=== PATIENT | female | born 1980 | race Caucasian/White ===

== ENCOUNTER → 2016-05-25 | Outpatient (CLI) | payer SELFPAY ==
[2016-05-25 14:26] LABS: BASOPHILS # (AUTO) 0.01 10*3/UL; BASOPHILS % (AUTO) 0.1 % (0-1); EOSINOPHILS % (AUTO) 0.6 % (0-8); HEMATOCRIT 39.7 % (37.0-47.0); HEMOGLOBIN 13.3 g/dL (12.0-16.0); IMM GRAN % (AUTO) 0.1 % (0-5); IMM GRAN# (AUTO) 0.01 10*3/UL; LYMPHOCYTES # (AUTO) 1.65 10*3/uL; LYMPHOCYTES % (AUTO) 18.6 % (10-50); MEAN CORPUSCULAR HEMOGLOBIN 31.4 PG (27-31); MEAN CORPUSCULAR HGB CONC 33.5 g/dL (33-37); MEAN PLATELET VOLUME 11.8 FL (7.4-12.2); MONOCYTES # (AUTO) 0.45 10*3/UL (0.3-0.8); MONOCYTES % (AUTO) 5.1 % (5-15); NEUTROPHILS # (AUTO) 6.71 10*3/UL; NEUTROPHILS % (AUTO) 75.5 % (50-80); RDW COEFFICIENT OF VARIATION 13.6 % (11.5-14.5); RED BLOOD COUNT 4.24 10^6/uL (4.20-5.40); WHITE BLOOD COUNT 8.88 10^3/uL (4.8-10.8)
[2016-05-25 15:01] LABS: PLATELET MORPHOLOGY COMMENT NORMAL MORPHOLOGY (NORM); PRENATAL QUESTION YES (Y)
[2016-05-25 16:26] LABS: HIV ANTIBODY NEGATIVE (N); HIV-1 P24 ANTIGEN NEGATIVE (N)
[2016-05-27 13:57] LABS: HEP B SURFACE AG Negative (Negative); RUBELLA IGG INDEX 0.5 (()); SYPHILIS IGG WITH REFLEX Negative (Negative)
== END ==
LOC: MOB LAB 13:25
PROVIDERS: ATTEND Obstetrics & Gynecology
DX: O26.891 Other specified pregnancy related conditions, first trimester (principal); N89.8 Other specified noninflammatory disorders of vagina; Z36 Encounter for antenatal screening of mother
CPT/HCPCS: 36415; 80081; 86900; 86901; 87088; 87210

== ENCOUNTER 2016-06-04 15:19 | Emergency (ER) | payer OTHER ==
[2016-06-04 15:51] LABS: BASOPHILS # (AUTO) 0.02 10*3/UL; BASOPHILS % (AUTO) 0.2 % (0-1); EOSINOPHILS % (AUTO) 0.5 % (0-8); HEMATOCRIT 39.7 % (37.0-47.0); HEMOGLOBIN 13.4 g/dL (12.0-16.0); IMM GRAN % (AUTO) 0.1 % (0-5); IMM GRAN# (AUTO) 0.01 10*3/UL; LYMPHOCYTES # (AUTO) 1.74 10*3/uL; LYMPHOCYTES % (AUTO) 20.3 % (10-50); MEAN CORPUSCULAR HEMOGLOBIN 31.2 PG (27-31); MEAN CORPUSCULAR HGB CONC 33.8 g/dL (33-37); MEAN PLATELET VOLUME 11.3 FL (7.4-12.2); MONOCYTES # (AUTO) 0.63 10*3/UL (0.3-0.8); MONOCYTES % (AUTO) 7.3 % (5-15); NEUTROPHILS # (AUTO) 6.14 10*3/UL; NEUTROPHILS % (AUTO) 71.6 % (50-80); RDW COEFFICIENT OF VARIATION 13.6 % (11.5-14.5); RED BLOOD COUNT 4.29 10^6/uL (4.20-5.40); WHITE BLOOD COUNT 8.58 10^3/uL (4.8-10.8)
--- NOTE | 2016-06-04 15:58 | PDOC ---
Female Problem HPI - General Chief Complaint: Vag Complaint/Bleed, <20WK IUP Stated Complaint: VAGINAL BLEEDING 9 week Date Seen by Provider: 06/04/16 Time Seen by Provider: 15:30 Source: POSITIVE: Patient Exam Limitations: POSITIVE: No limitations Nurse's Notes Reviewed & Considered: Yes - History of Present Illness Initial Comments: The patient is a 35-year-old female who is a at approximately 9-1/2 weeks gestational age who presents to the emergency room with vaginal bleeding. She states that during this she has had some intermittent spotting since the beginning. This morning she had a small gush of bright red blood. She does have some mild lower abdominal cramping she describes as similar to menstrual cramping. She has not had any fevers or chills, urinary symptoms or any other associated complaints. Her blood type is O+. - Patient Home Medications Home Medications: Home Medications Vit W-Ca,Fe,FA(<1 mg) [ Formula] 1 tab PO DAILY tab 08/06/14 - Patient Allergies Allergies/Adverse Reactions: Allergies Allergy/AdvReac Type Severity Reaction Status Date / Time No Known Drug Allergies Allergy NOT Verified 06/04/16 15:25 APPLICABLE Past Medical History - heen HEENT History: Denies History Cardiovascular History: Denies History Respiratory History: Denies History Gastrointestinal History: GERD Genitourinary History: Denies History Endocrine History: Denies History Musculoskeletal History: Denies History Prosthesis or Implant: No Neurological History: Denies History Blood Disorders: Denies History Psychiatric History: Denies History History of Sexually Transmitted Diseases: No LMP: 03/29/16 Obstetrical History: Delivery : 3 Para: 2 Cancer History: Denies History In Past Year Been Physically Harmed or Verbally Threatened: No History of MDRO: No History of Other Communicable Diseases: No Tobacco Use: Never Smoker Alcohol Use: Rarely Substance Use Type: None Previous Surgical History: Yes Type / Date of Surgery: WISDOM TEETH EXTRACTION, c section Significant Family History: No pertinent family hx Past Medical History Reviewed: Reviewed - No Changes ROS - Limitations ROS Limitations: No Limitations Constitution: DENIES: Chills, Fever Cardiovascular: REPORTS: Denies Cardiac Symptoms Respiratory: REPORTS: Denies Resp Symptoms Neurological: REPORTS: Denies Neuro Symptoms Gastrointestinal: REPORTS: Other (Some morning sickness symptoms, mild lower abdominal cramping) Musculoskeletal: REPORTS: Denies MS Symptoms Genitourinary: DENIES: Discharge, Dysuria, Flank Pain, Difficulty Urinating Eyes: REPORTS: Denies Symptoms ENT: REPORTS: Denies Symptoms Skin: DENIES: Rash Female Genitourinary Exam - General Appearance General Appearance: POSITIVE: Alert, Cooperative, No Acute Distress - HEENT HEENT: POSITIVE: Head Inspection Nml - Neck Neck: POSITIVE: Normal Inspection - Respiratory Respiratory: POSITIVE: No Respiratory Distress, Breath Sounds Normal - Cardiovascular Cardiovascular: POSITIVE: Regular Rate and Rhythm, Heart Sounds Normal - Abdomen Abdomen: POSITIVE: Soft, Non-Tender, No Distention, Other (Bedside ultrasound reveals intrauterine , positive movement and heart tones.) - Back Back: NEGATIVE: CVA Tenderness (R), CVA Tenderness (L) - Skin Skin: POSITIVE: Intact, No Rash - Extremities Extremity: Normal ROM: (All Extremities), Normal Inspection: (All Extremities) Female Genitourinary Progress - Results Reviewed by me Xrays/CTs/US Reviewed by me: Yes Discussed with Radiologist: Yes Radiology Findings: She does have a small subchorionic hemorrhage. Viable intrauterine measuring 9 weeks and 3 days consistent with dates. heart tones are in the 170s. Lab Results Reviewed: Yes Lab Results:: Laboratory Results 06/04/16 06/04/16 Range/Units 15:48 16:20 WBC 8.58 (4.8-10.8) 10^3/uL RBC 4.29 (4.20-5.40) 10^6/uL Hgb 13.4 (12.0-16.0) g/dL Hct 39.7 (37.0-47.0) % MCV 92.5 (81-99) FL MCH 31.2 H (27-31) PG MCHC 33.8 (33-37) g/dL RDW Std Deviation 45.0 (39-50) fL RDW Coeff of [place]by 13.6 (11.5-14.5) % Plt Count 221 (140-350) 10*3/uL MPV 11.3 (7.4-12.2) FL Immature Gran % (Auto) 0.1 (0-5) % Neut % (Auto) 71.6 (50-80) % Lymph % (Auto) 20.3 (10-50) % [place] % (Auto) 7.3 (5-15) % Eos % (Auto) 0.5 (0-8) % Baso % (Auto) 0.2 (0-1) % Immature Gran # (Auto) 0.01 10*3/UL Neut # (Auto) 6.14 10*3/UL Lymph # (Auto) 1.74 10*3/uL [place] # (Auto) 0.63 (0.3-0.8) 10*3/UL Eos # (Auto) 0.04 10*3/UL Baso # (Auto) 0.02 10*3/UL WBC Morphology Comment Normal morphology (NORM) Plt Morphology Comment Normal morphology (NORM) RBC Morph Comment Normal morphology (NORM) Sodium 137 (135-145) meq/L Potassium 3.6 L (3.8-5.2) meq/L Chloride 106 (98-112) meq/L Carbon Dioxide 21 L (23-33) meq/L Anion Gap 10 (5-20) BUN 7 (7-22) mg/dL Creatinine 0.5 (0.50-1.20) mg/dL Estimated GFR > 60 (>60 ml/min/1.73m(2)) BUN/Creatinine Ratio 14.00 (6-20) Glucose 84 (78-110) mg/dL Calculated Osmolality 280.0 (267-292) mOsm/kg Calcium 8.9 (8.7-10.7) mg/dL HCG, Quant 90673 mIU/ML Ur Collection Type Clean catch urine Urine Color Yellow Urine Clarity Clear (CLEAR) Urine pH 7.5 (5.0-8.5) Ur Specific [place] 1.010 (1.005-1.030) Urine Protein Negative (NEG) mg/dl Urine Glucose (UA) Negative (NEG) mg/dL Urine Ketones Negative (NEG) Urine Occult Blood Large H (NEG) Urine Nitrate Negative (NEG) Urine Bilirubin Negative (NEG) Urine Urobilinogen 1.0 (0.2) EU/dL Ur Leukocyte Esterase Small (NEG) Urine RBC 8-12 (NONE) /hpf Urine WBC 4-6 (NONE) Ur Squamous Epith Cells Rare (NONE) Ur Renal Epithelial Cell None (NONE) Urine Crystals None Urine Bacteria Moderate (NONE) Urine Casts None (NONE) Urine Mucus None (NONE) Urine Trichomonas None (NONE) Urine Yeast None (NONE) Ur Culture Indicated? Culture set - Patient's Progress MDM / ED Course: Lab work and urinalysis are unremarkable. Her ultrasound does reveal a small subchorionic hemorrhage which most likely is the etiology of her bleeding. At this point the baby appears to be doing well. She is advised to rest and push fluids. She will return to the emergency room if she develops increased pain or bleeding, fever, any worsening or change in symptoms. Recommended follow-up with her [facility] physician in one week. - Consult Counseled: POSITIVE: Patient, RE: Lab Results, RE: Radiology Results, RE: DX, RE : Need for F/U Patient Care Time - Estimated PCT Patient Care Time (In Minutes): 25 Vital Signs - Recent Vital Signs Vital Signs: Vital Signs (Last 8 hours) Temp Pulse Resp BP Pulse Ox 06/04/16 15:25 97.5 F 93 18 127/81 93 - VS Reviewed Vital Signs Reviewed: Yes Discharge Clinical Impression: Subchorionic hematoma in first trimester, Vaginal bleeding before 22 weeks gestation Condition: Stable Additional Instructions: The vaginal bleeding that you are experiencing is most likely secondary to a small separation of the from the uterus which caused a small amount of bleeding. Most of the time this does not interfere with the however occasionally if this were to worsen it could result in a miscarriage. Right now the baby looks good and the heart rate was in the 170s on the ultrasound. Recommend rest and push fluids. Return to the emergency room if increased pain or increased bleeding, fever, any worsening or change in symptoms. Recommend follow-up with [facility]IST in one week. Follow Up With: KLEVER DYE [Primary Care Provider] -
[2016-06-04 16:04] VITALS: RESP 18; TEMP 97.5
[2016-06-04 16:09] LABS: BLOOD UREA NITROGEN 7 mg/dL (7-22); CALCIUM 8.9 mg/dL (8.7-10.7); CHLORIDE 106 meq/L (98-112); CREATININE 0.5 mg/dL (0.50-1.20); EST GLOMERULAR FILTRATION > 60 (>60 ml/min/1.73m(2)); GLUCOSE 84 mg/dL (78-110); POTASSIUM 3.6 meq/L (3.8-5.2); SODIUM 137 meq/L (135-145)
[2016-06-04 16:26] LABS: BILIRUBIN,URINE NEGATIVE (NEG); CLARITY,URINE CLEAR (CLEAR); GLUCOSE, URINE (UA) NEGATIVE (NEG); LEUKOCYTE ESTERASE ,URINE SMALL (NEG); NITRATE,URINE NEGATIVE (NEG); OCCULT BLOOD,URINE LARGE (NEG); PH,URINE 7.5 (5.0-8.5); PROTEIN,URINE NEGATIVE (NEG)
[2016-06-04 16:29] LABS: PLATELET MORPHOLOGY COMMENT NORMAL MORPHOLOGY (NORM)
[2016-06-04 16:34] LABS: BACTERIA,URINE MODERATE; SQUAMOUS EPITHELIAL CELL,UR RARE; URINE SAMPLE TYPE CLEAN CATCH URINE
--- NOTE | 2016-06-04 17:08 | DI ---
HISTORY: Vaginal bleeding. TECHNIQUE: Sonographic images of the pelvis were obtained and submitted for interpretation. FINDINGS: There is a single, live visualized with a heart rate of approximately 179 beats per minute. The crown-rump length measures approximately 26 mm corresponding to a 9-week, 3-da y . The right ovary measures 2.2 x 1.2 x 2.6 cm. Left ovary measures 3.2 x 3.7 cm. Normal arterial wave forms are noted in both ovaries. Small anechoic area to the right of the gestational sac is probably a small subchorionic hematoma (im age 73). IMPRESSION: 1. Single, live intrauterine of approximately 9 weeks and 3 days without acute complication noted. NOTE: The interpreting Radiologist was not present at the time of ultrasound interrogation.
== END 2016-06-04 17:22 | disposition home or self-care (01) ==
LOC: ER 15:19
DX: O26.891 Other specified pregnancy related conditions, first trimester (principal)
CPT/HCPCS: 36415; 76801; 80048; 81001; 81003; 84702; 85025; 87088; 99283

== ENCOUNTER → 2016-08-09 | Outpatient (CLI) | payer OTHER ==
--- NOTE | 2016-08-09 20:34 | DI ---
OBSTETRICAL ULTRASOUND, 08/09/2016 2:57 PM: Clinical History: Antepartum screening. Previous Exam: 06/04/2016. ADJUSTED DATE FROM EARLY OBUS: 03/29/2017. There is a single live IUP currently in breech Amnionic fluid content is normal. activity is ob served as follows: cardiac and extremity. The placenta is anterior corpus and Grade 1. heart ra te is 152 beats/minute and regular. There is a 3 vessel cord. The insertion of the cord in the placen ta is asymmetrically positioned and is along the left lateral margin of the placenta. The RVOT, LVOT and 4 chamber heart view are normal. The aortic arch and descending aorta are normal. Views of the fe chip spine, face, and kidneys are unremarkable. BPD, HC, AC, and FL measurements are 44 mm, 167 mm, 13 6 mm, and 29 mm, respectively. These measurements correspond to EGA values of 19 weeks 3 days, 19 wee ks 3 days, 19 weeks 1 day and 19 weeks 0 days, respectively. Composite EGA is 19 weeks 2 days. The US EDC is 01/01/2017. EDC by adjusted LMP is 01/03/2017. Readin. Single live fetus with breech presentation and normal amniotic fluid content. Placenta is anterio r corpus and grade 1. The cord insertion on the placenta is along the left lateral margin of the plac enta. 2. The composite EGA is 19 weeks 2 days with an ultrasound EDC of 01/01/2017. The EDC based on the adj usted LMP of 03/29/2017 is 01/03/2017.
== END ==
LOC: US 14:49
PROVIDERS: ATTEND Obstetrics & Gynecology
DX: Z36 Encounter for antenatal screening of mother (principal); Z3A.19 19 weeks gestation of pregnancy
CPT/HCPCS: 76805

== ENCOUNTER → 2016-10-08 | Outpatient (CLI) | payer SELFPAY ==
[2016-10-08 16:15] LABS: HEMOGLOBIN 11.7 g/dL (12.0-16.0); MEAN CORPUSCULAR HEMOGLOBIN 30.8 PG (27-31); MEAN CORPUSCULAR HGB CONC 32.5 g/dL (33-37); MEAN CORPUSCULAR VOLUME 94.7 FL (81-99); RED BLOOD COUNT 3.8 10^6/uL (4.20-5.40)
== END ==
LOC: LAB 14:52
PROVIDERS: ATTEND Obstetrics & Gynecology
DX: Z36 Encounter for antenatal screening of mother (principal); Z3A.27 27 weeks gestation of pregnancy
CPT/HCPCS: 36415; 82950; 85027

== ENCOUNTER → 2016-10-14 | Outpatient (CLI) | payer OTHER | LOC: LAB 08:22 | PROVIDERS: ATTEND Obstetrics & Gynecology | DX: O26.893 Other specified pregnancy related conditions, third trimester (principal); R73.09 Other abnormal glucose; Z3A.28 28 weeks gestation of pregnancy | CPT/HCPCS: 36415; 82951; 82952 ==

== ENCOUNTER → 2016-11-04 | Outpatient (CLI) | payer OTHER ==
[2016-11-04 12:15] LABS: BLOOD UREA NITROGEN 4 mg/dL (7-22); BUN/CREATININE RATIO 6.66 (6-20); CALCIUM 8.8 mg/dL (8.7-10.7); EST GLOMERULAR FILTRATION > 60 (>60 ml/min/1.73m(2)); SERUM ALBUMIN 3.5 g/dL (3.5-4.8)
[2016-11-09 10:06] LABS: CHENODEOXYCOHLIC ACID 0.86 nmol/mL (<=6.00); CHOLIC ACID 0.7 nmol/mL (<=5.00); DEOXYCHOLIC ACID 1.12 nmol/mL (<=6.00)
[2016-11-09 13:36] LABS: TOTAL BILE ACIDS 3.05 nmol/mL (<=19.00)
== END ==
LOC: LAB 11:46
PROVIDERS: ATTEND Obstetrics & Gynecology
DX: O26.893 Other specified pregnancy related conditions, third trimester (principal); L29.8 Other pruritus; Z3A.31 31 weeks gestation of pregnancy
CPT/HCPCS: 80053; 82542

== ENCOUNTER → 2016-12-01 | Outpatient (CLI) | payer OTHER | LOC: MOB LAB 08:50 | PROVIDERS: ATTEND Obstetrics & Gynecology | DX: Z36 Encounter for antenatal screening of mother (principal); Z3A.35 35 weeks gestation of pregnancy | CPT/HCPCS: 87150 ==

== ENCOUNTER 2016-12-06 20:13 | Outpatient (CLI) | payer OTHER ==
[2016-12-06] MEDS ORDERED: NORMAL SALINE 10 ML SYRINGE FLUSH IVP PRN (20:23)
[2016-12-06 20:32] VITALS: RESP 20; TEMP 98.3
[2016-12-06] MEDS ORDERED: TERBUTALINE SULFATE 1 MG/1 ML SDV SUBCUT ONE (21:27)
[2016-12-06] MEDS ORDERED: BETAMET ACET/BETAMET NA PH 6 MG/1 ML - 5 ML IM SCH (21:27)
[2016-12-06] MEDS ORDERED: Sodium Chloride 0.9% 1,000 ML PRIMARY IV SCH (21:27)
[2016-12-06] MEDS ORDERED: TERBUTALINE SULFATE 1 MG/1 ML SDV ONE (21:31)
[2016-12-06] MEDS ORDERED: Sodium Chloride 0.9% 1,000 ML ONE (21:32)
[2016-12-06] MEDS ORDERED: BETAMET ACET/BETAMET NA PH 6 MG/1 ML - 5 ML ONE (21:38)
[2016-12-06] MEDS ORDERED: metroNIDAZOLE Tab 500 MG TAB PO ONE (23:08)
--- NOTE | 2016-12-12 23:35 | PDOC(PROG) ---
Intake - - Reason for Visit/Chief Complaint: Cramping Admitted From: Home - Estimated Due Date: 12/30/16 Gestational Age in Weeks and Days: 37 Weeks and 3 Days : 3 Para: 2 Term Births: 2 Births: 0 Number of Abortions (Spont./Elective): 0 Living Children: 2 - Labs Blood Type and Rh: O+ Group B Strep: Positive Maternal - Vital Signs Last Taken Vital Signs: Vital Signs - Last Taken Temperature 98.3 F 12/06/16 20:23 Pulse Rate 99 12/06/16 22:22 Respiratory Rate 20 12/06/16 20:23 Blood Pressure 120/78 12/06/16 22:22 Pulse Ox 100 12/06/16 22:22 - Uterine Activity Uterine Contraction Monitor Mode: External Contraction Frequency(minutes): 0 Contraction Duration (seconds): 0 Uterine Contraction Pattern: Absent Uterine Tone Measurement Phase: Resting Uterine Contraction Intensity: Mild - Vaginal Discharge Vaginal Bleeding Amount: None Monitoring - Uterine Activity Uterine Contraction Monitor Mode: External Contraction Frequency(minutes): 0 Contraction Duration (seconds): 0 Uterine Contraction Pattern: Absent Uterine Tone Measurement Phase: Resting Uterine Contraction Intensity: Mild Results - Bedside Testing Bedside Urine Ketone: Negative Bedside Urine Leukocytes Esterase: Moderate Bedside Urine Nitrite: Negative Bedside Urine Occult Blood: Negative Bedside Urine Protein: Negative Bedside Specific [place]: 1.015 Assessment and Plan - Patient Problems (1) contractions Status: Acute
== END 2016-12-06 23:25 | disposition home or self-care (01) ==
LOC: OBOP 20:13
PROVIDERS: ATTEND Family Medicine
DX: O60.03 Preterm labor without delivery, third trimester (principal); Z36 Encounter for antenatal screening of mother; O26.893 Other specified pregnancy related conditions, third trimester; L29.8 Other pruritus; Z3A.36 36 weeks gestation of pregnancy
CPT/HCPCS: 59025; 81003; 87480; 87510; 87660; 96360; 96372; 99211; J0702; J3105; J7030

== ENCOUNTER 2016-12-07 21:34 | Outpatient (CLI) | payer OTHER ==
[2016-12-07] MEDS ORDERED: NORMAL SALINE 10 ML SYRINGE FLUSH IVP PRN (21:40)
[2016-12-07 22:08] VITALS: RESP 16; TEMP 98.1
--- NOTE | 2016-12-12 23:34 | PDOC(PROG) ---
Intake - - Reason for Visit/Chief Complaint: NST, Decreased Movement, Other Additional Reason(s) for Visit: 2nd dose of betamethasone Admitted From: Home - Estimated Due Date: 12/30/16 Gestational Age in Weeks and Days: 37 Weeks and 3 Days : 3 Para: 2 Term Births: 2 Births: 0 Number of Abortions (Spont./Elective): 0 Living Children: 2 - Labs Blood Type and Rh: O+ Group B Strep: Positive Maternal - Vital Signs Last Taken Vital Signs: Vital Signs - Last Taken Temperature 98.1 F 12/07/16 21:39 Pulse Rate 77 12/07/16 21:39 Respiratory Rate 16 12/07/16 21:39 Blood Pressure 120/68 12/07/16 21:39 Pulse Ox 98 12/07/16 21:39 - Uterine Activity Uterine Contraction Monitor Mode: External Contraction Frequency(minutes): irritability Uterine Tone Measurement Phase: Resting - Vaginal Discharge Vaginal Bleeding Amount: None Vaginal Discharge Amount: None Vaginal Itching: No Monitoring - Uterine Activity Uterine Contraction Monitor Mode: External Contraction Frequency(minutes): irritability Uterine Tone Measurement Phase: Resting Results - Bedside Testing Bedside Urine Ketone: Negative Bedside Urine Leukocytes Esterase: Moderate Bedside Urine Nitrite: Negative Bedside Urine Occult Blood: Negative Bedside Urine Protein: Negative Bedside Specific [place]: 1.015 Assessment and Plan - Patient Problems (1) Decreased movement Status: Acute Qualifiers: Fetus number: single or unspecified fetus Trimester: third trimester Qualified Description: Decreased movements in third trimester, single or unspecified fetus Qualifier Code(s): (O36.8130) Decreased movements, third trimester, not applicable or unspecified - Assessment / Plan Additional Assessment/Plan Details: -normal NST -received second dose of celestone for threatened labor last noc. -f/u as scheduled with Dr. Sevilla this week/sooner to L&D if issues.
== END 2016-12-07 22:30 | disposition home or self-care (01) ==
LOC: OBOP 21:34
PROVIDERS: ATTEND Family Medicine
DX: O36.8130 Decreased fetal movements, third trimester, not applicable or unspecified (principal); O60.03 Preterm labor without delivery, third trimester; Z3A.36 36 weeks gestation of pregnancy
CPT/HCPCS: 59025; 81003; 99211

== ENCOUNTER 2016-12-14 08:41 | Inpatient (IN) | payer OTHER ==
[2016-12-14] MEDS ORDERED: NORMAL SALINE 10 ML SYRINGE FLUSH IVP PRN ×3 (08:46→11:26)
[2016-12-14] MEDS ORDERED: CITRIC ACID/SODIUM CITRATE 30 ML CUP PO ONE (08:56)
[2016-12-14] MEDS ORDERED: Metoclopramide Inj 10 MG/2 ML VIAL IV ONE (08:56)
[2016-12-14] MEDS ORDERED: CefOXitin Inj 2 GM in Sodium Chloride 0.9% 100 ML IV ONE (08:56)
[2016-12-14] MEDS ORDERED: Famotidine Inj 20 MG in Normal Saline Flush 10 ML IVP ONE (08:56)
[2016-12-14] MEDS ORDERED: LIDOCAINE W/ SODIUM BICARB 0.5 ML SYR SUBD PRN (08:56)
[2016-12-14] MEDS ORDERED: Lactated Ringers 1,000 ML PRIMARY IV ONE ×2 (08:56→10:44)
[2016-12-14] MEDS ORDERED: Oxytocin 20 Units + LR 1,000 ML IV SCH ×2 (09:00→12:31)
[2016-12-14] MEDS ORDERED: Lactated Ringers 1,000 ML PRIMARY IV SCH ×2 (09:00→11:30)
[2016-12-14 09:49] LABS: HEMATOCRIT 36.2 % (37.0-47.0); HEMOGLOBIN 12.1 g/dL (12.0-16.0); MEAN CORPUSCULAR HEMOGLOBIN 30.7 PG (27-31); MEAN CORPUSCULAR HGB CONC 33.4 g/dL (33-37); MEAN CORPUSCULAR VOLUME 91.9 FL (81-99); MEAN PLATELET VOLUME 11.4 FL (7.4-12.2); RED BLOOD COUNT 3.94 10^6/uL (4.20-5.40)
[2016-12-14] MEDS ORDERED: fentaNYL Inj 100 MCG/2 ML VIAL IVP PRN ×2 (09:52→11:26)
[2016-12-14] MEDS ORDERED: ePHEDrine Inj 50 MG/ML AMP ONE (10:05)
[2016-12-14] MEDS ORDERED: MORPHINE SULFATE/PF 10 MG/10 ML AMPULE ONE (10:06)
[2016-12-14] MEDS ORDERED: Oxytocin 20 Units + LR 1,000 ML IV ONE (10:33)
[2016-12-14] MEDS ORDERED: ONDANSETRON 4 MG/2 ML VIAL ONE (10:44)
--- NOTE | 2016-12-14 11:22 | OB.OP.NOTE ---
Operative Report Surgeon: Di Weaver Needle Loom: Les Moya MD Anesthesia Type: Regional Anesthesia Provider: Aristeo Amado CRNA Surgery Date: 12/14/16 Preoperative Diagnosis: Term , Previous Delivery, PROM, Desires Sterilization. Postoperative Diagnosis: Same with [place] Breech Presentation Procedure: Repeat LTCS with PPTL with Filshie Clips Estimated Blood Loss (mL): 800 Fluids: 1700 ml Complications: None Findings at Surgery: Viable male infant, Apgars 7/9, [place] Breech Presentation, Nuchal Cord x2. Normal uterus, tubes and ovaries. Indications for the Procedure: Previous . Desires sterilization. PROM. Description of Procedure: See dictated operative report. Plan: Routine post op care.
[2016-12-14] MEDS ORDERED: HYDROmorphone 2 MG/1 ML IVP PRN (11:26)
[2016-12-14] MEDS ORDERED: PROMETHAZINE 25 MG/1 ML VIAL IM PRN (11:26)
[2016-12-14] MEDS ORDERED: METHYLERGONOVINE MALEATE 0.2 MG/1 ML VIAL IM PRN (12:31)
[2016-12-14] MEDS ORDERED: ONDANSETRON 4 MG/2 ML VIAL IVP PRN (12:31)
[2016-12-14] MEDS ORDERED: Carboprost Inj 250 MCG/ML AMP IM PRN (12:31)
[2016-12-14] MEDS ORDERED: Nalbuphine Inj 20 MG/ML Ampule IVP PRN (12:31)
[2016-12-14] MEDS ORDERED: diphenhydrAMINE 25 MG CAPSULE PO PRN (12:31)
[2016-12-14] MEDS ORDERED: Methylergonovine Tab 0.2 MG TAB PO PRN (12:31)
[2016-12-14] MEDS ORDERED: MISOPROSTOL 200 MCG TABLET RECTAL ONE (12:31)
[2016-12-14] MEDS ORDERED: LANOLIN HPA 40 GM TUBE TOPICAL PRN (12:31)
[2016-12-14] MEDS ORDERED: Famotidine Inj 20 MG in Normal Saline Flush 10 ML IVP PRN (12:31)
[2016-12-14] MEDS ORDERED: diphenhydrAMINE 50 MG/1 ML VIAL IV PRN (12:31)
[2016-12-14] MEDS ORDERED: DIPH,PERTUSS,TET(ADACEL) VAC/PF 0.5 ML (Tdap) IM ONE (12:31)
[2016-12-14] MEDS ORDERED: CALCIUM CARBONATE 500 MG (TUMS) CHEWABLE TABLET PO PRN (12:31)
[2016-12-14] MEDS ORDERED: OXYTOCIN 10 UNIT/1 ML IM ONE (12:31)
[2016-12-14] MEDS ORDERED: Naloxone Inj 0.01 MG, Sodium Chloride 0.9% vial 1 ML IVP PRN ×2 (12:31)
[2016-12-14] MEDS: KETOROLAC 15 MG/1 ML VIAL IVP PRN ×2 (14:15→22:42)
[2016-12-14] MEDS: NORMAL SALINE 10 ML SYRINGE FLUSH IVP PRN ×2 (14:57→22:42)
[2016-12-14] MEDS: D5-LR 1,000 ML PRIMARY IV SCH ×2 (15:52→22:40)
[2016-12-15] MEDS: oxyCODONE-ACETAMINOPHEN 5-325 TAB PO PRN ×5 (02:59→22:06)
[2016-12-15] MEDS: KETOROLAC 15 MG/1 ML VIAL IVP PRN ×3 (04:27→17:59)
[2016-12-15] MEDS: NORMAL SALINE 10 ML SYRINGE FLUSH IVP PRN ×2 (04:27→18:02)
[2016-12-15 05:00] LABS: HEMATOCRIT 26.2 % (37.0-47.0); HEMOGLOBIN 8.6 g/dL (12.0-16.0); MEAN CORPUSCULAR HEMOGLOBIN 30.5 PG (27-31); MEAN CORPUSCULAR HGB CONC 32.8 g/dL (33-37); MEAN CORPUSCULAR VOLUME 92.9 FL (81-99); MEAN PLATELET VOLUME 11.4 FL (7.4-12.2); RED BLOOD COUNT 2.82 10^6/uL (4.20-5.40)
[2016-12-15] MEDS: Senna/Docusate Tab 1 TAB TAB PO SCH ×2 (08:15→22:06)
[2016-12-15] MEDS: Prenatal Multivitamin Tab 1 TAB TAB PO SCH (08:15)
--- NOTE | 2016-12-15 08:48 | OB.PROGRES ---
Subjective Post Op Day: 1 Pain Management: PO Rosas Catheter: No Flatus: No Diet: Regular [place] Feeding Method: Exculsively Ambulating: Yes Concerns / Additional Information: Doing well this morning. Catheter is out and she is ambulating without difficulty. Tolerating regular diet. Assesstment / Plan Assessment / Plan: POD 1, doing well. CCM.
[2016-12-15] MEDS ORDERED: IBUPROFEN 800 MG TABLET PO PRN (11:16)
[2016-12-16] MEDS: oxyCODONE-ACETAMINOPHEN 5-325 TAB PO PRN ×3 (03:10→14:55)
[2016-12-16 05:04] VITALS: RESP 18
--- NOTE | 2016-12-16 07:45 | DCSUMMARY ---
Hospitalization Summary Admit Date: 12/14/16 Discharge Date: 12/16/16 Primary Diagnosis:: Term , Delivered Secondary Diagnosis:: Previous . Desires Sterilization. Primary Surgery and Date: Repeat LTCS with PPTL 12/14/16 Delivery Type: Hospital Course: Normal, uncomplicated delivery and course. / Postop Complications: None Freedom Complications: None Exam - Vitals Vital Signs: Vital Signs Temperature 98.6 F Temperature Source Oral Pulse Rate [Pulse Oximeter] 73 Pulse Rate 60 Respiratory Rate 18 Blood Pressure [Left Arm] 94/60 Blood Pressure [Right Arm] 102/59 Blood Pressure 106/45 Pulse Ox 93 Oxygen Flow Rate 1 Oxygen Flow Rate 2 Oxygen Delivery Method Room Air Height 5 ft 2 in Weight 187 lb
--- NOTE | 2016-12-16 07:46 | OB.PROGRES ---
Subjective Post Op Day: 2 Pain Management: PO Rosas Catheter: No Flatus: Yes Diet: Regular Feeding Method: Exculsively Ambulating: Yes Assesstment / Plan Assessment / Plan: POD 2, doing well. Pt. ready for discharge to home.
[2016-12-16] MEDS: Senna/Docusate Tab 1 TAB TAB PO SCH (09:54)
[2016-12-16] MEDS: Prenatal Multivitamin Tab 1 TAB TAB PO SCH (09:54)
[2016-12-16 12:23] VITALS: TEMP 98.2
--- NOTE | 2016-12-22 11:08 | DCSUMMARY ---
Hospitalization Summary Admit Date: 12/14/16 Discharge Date: 12/16/16 Delivery Type: Hospital Course: Addendum to previous discharge summary: Follow up in one week. Discharge to home in good condition. Exam - Vitals Vital Signs: Vital Signs Temperature 98.2 F Temperature Source Oral Pulse Rate [Pulse Oximeter] 82 Pulse Rate 82 Respiratory Rate 18 Blood Pressure [Left Arm] 95/68 Blood Pressure [Right Arm] 102/59 Blood Pressure 106/45 Pulse Ox 94 Oxygen Flow Rate 1 Oxygen Flow Rate 2 Oxygen Delivery Method Room Air Height 5 ft 2 in Weight 187 lb
== END 2016-12-16 15:08 | disposition home or self-care (01) | DRG 766 ==
LOC: OBOP 08:41 → OBIP 08:56
PROVIDERS: ADMIT Obstetrics & Gynecology; ATTEND Obstetrics & Gynecology
PROC: 10D00Z1 Extraction of Products of Conception, Low, Open Approach (ICD-10-PCS; principal; 2016-12-14 11:00)
PROC: 0UL70CZ Occlusion of Bilateral Fallopian Tubes with Extraluminal Device, Open Approach (ICD-10-PCS; 2016-12-14 11:00)
DX: O34.211 Maternal care for low transverse scar from previous cesarean delivery (principal); N85.8 Other specified noninflammatory disorders of uterus; O32.8XX0 Maternal care for other malpresentation of fetus, not applicable or unspecified; O42.92 Full-term premature rupture of membranes, unspecified as to length of time between rupture and onset of labor; Z3A.39 39 weeks gestation of pregnancy; Z37.0 Single live birth
CPT/HCPCS: 36415; 84112; 85027; 86850; 86900; 86901; 94150; 94761; J0290; J1885; J2405; J2765; J3010; J7050; J7120